=== PATIENT | female | born 1985 | race Caucasian/White ===

== ENCOUNTER 2021-04-10 18:17 | Emergency (ER) | payer SELFPAY ==
--- NOTE | 2021-04-10 18:52 | EDM.PDOC ---
ED HPI GENERAL MEDICAL PROBLEM - General Chief Complaint: General Stated Complaint: WITHDRAWALS Time Seen by Provider: 04/10/21 18:37 Source of Information: Reports: Patient, RN Notes Reviewed History Limitations: Reports: No Limitations - History of Present Illness INITIAL COMMENTS - FREE TEXT/NARRATIVE: Patient is a 36-year-old female who presents to the ER for a medication refill. 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 States that she has subsequently run out of her hydrocodone/acetaminophen 7.5-325 mg tablets. She states that her care provider [place] state lines. She has not been taken anything else for pain management. She states that she is having chronic neck/back pain. She ran out this morning, and states that she has been having slight withdrawal type symptoms since then. She states she has been taking this medication 2 times a day for the last 10 years or so. Patient denies any other sick-like symptoms, fever/chills, cough/shortness of breath, nausea/vomiting/diarrhea. Neck Pain Score (Numeric/FACES): 9 - Related Data Allergies Allergy/AdvReac Type Severity Reaction Status Date / Time No Known Allergies Allergy Verified 04/10/21 18:38 Home Meds: Home Meds Hydrocodone/Acetaminophen [HYDROcodone-Acetaminophen 7.5-325 MG] 1 tab PO BID #8 tablet 04/10/21 [Rx] Past Medical History Musculoskeletal History: Reports: Back Pain, Chronic, Neck Pain, Chronic, RA - Past Surgical History HEENT Surgical History: Reports: Adenoidectomy, Tonsillectomy Social & Family History - Tobacco Use Tobacco Use Status *Q: Current Every Day Tobacco User Years of Tobacco use: 20 Packs/Tins Daily: 1 - Caffeine Use Caffeine Use: Reports: Coffee, Soda - Recreational Drug Use Recreational Drug Use: No ED ROS GENERAL - Review of Systems Review Of Systems: Comprehensive ROS is negative, except as noted in HPI. ED EXAM, GENERAL - Physical Exam Exam: See Below Exam Limited By: No Limitations General Appearance: Alert, WD/WN, No Apparent Distress, Anxious (slight generalized) Respiratory/Chest: No Respiratory Distress, Lungs Clear, Normal Breath Sounds, No Accessory Muscle Use, Chest Non-Tender Cardiovascular: Normal Peripheral Pulses, Regular Rate, Rhythm, No Edema Peripheral Pulses: 2+: Radial (L), Radial (R) Extremities: Normal Inspection, Normal Capillary Refill Neurological: Alert, Oriented, Normal Cognition, No Motor/Sensory Deficits Psychiatric: Normal Affect, Normal Mood Skin Exam: Warm, Dry, Intact, Normal Color, No Rash Course - Vital Signs Last Recorded V/S: Last Vital Signs Temp 97.6 F 04/10/21 18:36 Pulse 61 04/10/21 18:36 Resp 20 04/10/21 18:36 BP 121/104 H 04/10/21 18:36 Pulse Ox 100 04/10/21 18:36 - Re-Assessments/Exams Free Text/Narrative Re-Assessment/Exam: 04/10/21 18:50 Patient presents to the ER essentially for medication refill. I will give her 8 tablets of her prescription medication so she can make it through till Wednesday until she gets back to [place]. Departure - Departure Time of Disposition: 18:51 Disposition: Home, Self-Care 01 Condition: Good Clinical Impression: Encounter for medication refill, Chronic neck and back pain - Discharge Information *PRESCRIPTION DRUG MONITORING PROGRAM REVIEWED*: Yes *COPY OF PRESCRIPTION DRUG MONITORING REPORT IN PATIENT KT: No Prescriptions: Hydrocodone/Acetaminophen [HYDROcodone-Acetaminophen 7.5-325 MG] 1 tab PO BID #8 tablet Instructions: Chronic Back Pain, [id number] Referrals: PCP,None [Primary Care Provider] - Additional Instructions: You were evaluated in the ER today for your chronic neck pain. You were given a one-time refill of your prescription medications hydrocodone/acetaminophen 7.5-325 mg for ongoing management. This medication was electronically prescribed to the [place] [facility] located in the [employer] [facility]. Please follow-up with your regular provider when she returns back to [place], to get your medication prescription refilled. Sepsis Event Note (ED) - Evaluation Sepsis Screening Result: No Definite Risk - Focused Exam Vital Signs: Vital Signs Temp Pulse Resp BP Pulse Ox 04/10/21 18:36 97.6 F 61 20 121/104 H 100
== END 2021-04-10 19:31 | disposition home or self-care (01) ==
LOC: JD.ED 18:17
DX: G89.29 Other chronic pain (principal); M54.2 Cervicalgia; M54.9 Dorsalgia, unspecified; Z76.0 Encounter for issue of repeat prescription; Z72.0 Tobacco use
CPT/HCPCS: 99281